=== PATIENT | female | born 1975 | race Caucasian/White ===

== ENCOUNTER 2017-05-02 19:08 | Emergency (ER) | payer SELFPAY ==
[2017-05-02 19:24] VITALS: BP 125/81
== END 2017-05-02 22:15 | disposition left against medical advice (07) ==
LOC: ED 19:08
DX: Z53.21 Procedure and treatment not carried out due to patient leaving prior to being seen by health care provider (principal)

== ENCOUNTER 2019-05-25 08:38 | Emergency (ER) | payer OTHER ==
[~2019-05-25] VITALS: Ht 129.5 cm; Wt 54.4 kg
[2019-05-25 08:44] VITALS: Ht 129.5 cm; Wt 54.4 kg
[2019-05-25 14:25] VITALS: BP 114/71
== END 2019-05-25 14:25 | disposition home or self-care (01) ==
LOC: ED 08:38
DX: O99.511 Diseases of the respiratory system complicating pregnancy, first trimester (principal); O26.891 Other specified pregnancy related conditions, first trimester; J40 Bronchitis, not specified as acute or chronic; N83.202 Unspecified ovarian cyst, left side; Z3A.01 Less than 8 weeks gestation of pregnancy
CPT/HCPCS: 36415; 82962